=== PATIENT | female | born 1975 | race Two or more races ===

== ENCOUNTER 2016-08-15 17:11 | Emergency (ER) | payer SELFPAY ==
[~2016-08-15] VITALS: Ht 160 cm; Wt 78.9 kg
[~2016-08-15 17:11] MED LIST: DOXY-168 PO; IBUP-1222 PO; Methergine; OXYC-302 PO; methergine PO
[2016-08-15] MEDS ORDERED: MAALOX/HYOSCYAMINE/LIDOCAINE 45 ML BOTTLE ONE (17:53)
[2016-08-15] MEDS ORDERED: MORPHINE SULFATE 4 MG/ML, 1ML ONE (17:53)
[2016-08-15] MEDS ORDERED: ONDANSETRON 2MG/ML, 2ML ONE (17:54)
[2016-08-15] MEDS ORDERED: FAMOTIDINE 20 MG/2 ML ONE (17:54)
[2016-08-15] MEDS ORDERED: MAALOX/HYOSCYAMINE/LIDOCAINE 45 ML BOTTLE PO ONE (18:00)
[2016-08-15] MEDS ORDERED: FAMOTIDINE 20 MG/2 ML IVP ONE (18:00)
[2016-08-15] MEDS ORDERED: ONDANSETRON 2MG/ML, 2ML IVPush ONE (18:00)
[2016-08-15] MEDS ORDERED: MORPHINE SULFATE 4 MG/ML, 1ML IVPush PRN (18:00)
[2016-08-15 18:10] LABS: ASPARTATE AMINO TRANSFERASE 10 U/L (15-37); BLOOD UREA NITROGEN 9 mg/dL (7-18)
[2016-08-15] MEDS ORDERED: CEFOTETAN PMX 2GM/50ML 50 ML IV ONE (19:30)
[2016-08-15] MEDS ORDERED: CEFOTETAN PMX 1GM/50ML 50 ML ONE (19:35)
[2016-08-15 20:40] VITALS: BP 115/78
== END 2016-08-15 20:44 | disposition home or self-care (01) ==
LOC: ED 18:54
DX: K80.20 Calculus of gallbladder without cholecystitis without obstruction (principal); K80.50 Calculus of bile duct without cholangitis or cholecystitis without obstruction; I10 Essential (primary) hypertension
CPT/HCPCS: 36415; 76700; 80053; 83690; 85025; 86677; 93005; 96365; 96375; 99285; J2405; S0074; S0028

== ENCOUNTER 2016-11-28 22:15 | Emergency (ER) | payer OTHER ==
[~2016-11-28] VITALS: Ht 154.9 cm; Wt 78.9 kg
[2016-11-28] MEDS ORDERED: KETOROLAC 30 MG/1 ML ONE (22:41)
[2016-11-28] MEDS ORDERED: KETOROLAC 30 MG/1 ML IVPush ONE (23:00)
[2016-11-28] MEDS ORDERED: SODIUM CHLORIDE FLUSH 10ML SYR IVF ONE (23:00)
[2016-11-28 23:07] LABS: ASPARTATE AMINO TRANSFERASE 23 U/L (15-37); BLOOD UREA NITROGEN 10 mg/dL (7-18); HEMATOCRIT 31.6 % (34.6-47.8); HEMOGLOBIN 10.1 g/dL (11.7-16.4); WHITE BLOOD COUNT 8.4 x10^3/uL (3.4-10)
[2016-11-29 00:46] VITALS: BP 119/65
== END 2016-11-29 00:51 | disposition home or self-care (01) ==
LOC: ED 23:43
DX: D64.9 Anemia, unspecified (principal); N93.8 Other specified abnormal uterine and vaginal bleeding; N92.4 Excessive bleeding in the premenopausal period; N92.0 Excessive and frequent menstruation with regular cycle; N92.1 Excessive and frequent menstruation with irregular cycle; I10 Essential (primary) hypertension
CPT/HCPCS: 36415; 76830; 80053; 84703; 85025; 96374; 99285; J1885

== ENCOUNTER 2016-12-02 11:32 | Inpatient (IN) | payer MEDICAID, OTHER ==
[~2016-12-02] VITALS: Ht 165.1 cm; Wt 78.0 kg
[2016-12-02] VITALS (11 sets, daily range): BP systolic 104–137; BP diastolic 61–79
[~2016-12-02 11:32] MED LIST changes: -DOXY-168 PO; +DOXY100T10 PO
[2016-12-02] MEDS ORDERED: ACETAMINOPHEN 325 MG TABLET ONE (12:47)
[2016-12-02] MEDS ORDERED: ACETAMINOPHEN 325 MG TABLET PO ONE (13:00)
[2016-12-02 13:11] LABS: HEMATOCRIT 19.9 % (34.6-47.8)
[2016-12-02 13:12] LABS: HEMOGLOBIN 6.4 g/dL (11.7-16.4)
[2016-12-02] MEDS ORDERED: SODIUM CHLORIDE 0.9% 1,000ML IVBOLUS ONE (13:30)
[2016-12-02] MEDS ORDERED: SODIUM CHLORIDE FLUSH 10ML SYR IVF ONE (13:30)
[2016-12-02 13:31] LABS: ANISOCYTOSIS 1+; MICROCYTOSIS 1+; POLYCHROMASIA 1+
[2016-12-02 13:55] LABS: BLOOD UREA NITROGEN 6 mg/dL (7-18)
[2016-12-02] MEDS ORDERED: NORGESTIMATE-ETHINYL ESTRADIOL TABLET PO ONE (14:00)
[2016-12-02 16:04] LABS: IS PT STATUS REG ER OR PRE ER? NO
[2016-12-02] MEDS: ACETAMINOPHEN 325 MG TABLET PO PRN (17:09)
[2016-12-02 23:16] LABS: IS PT STATUS REG ER OR PRE ER? NO
[2016-12-03 00:48] VITALS: BP 100/68
[2016-12-03 04:02] LABS: HEMATOCRIT 24.9 % (34.6-47.8); HEMOGLOBIN 8.1 g/dL (11.7-16.4); WHITE BLOOD COUNT 6.7 x10^3/uL (3.4-10)
[2016-12-03 04:09] LABS: ASPARTATE AMINO TRANSFERASE 12 U/L (15-37); BLOOD UREA NITROGEN 8 mg/dL (7-18)
[2016-12-03 08:17] VITALS: BP 111/66
[2016-12-03] MEDS: ACETAMINOPHEN 325 MG TABLET PO PRN ×2 (12:15→22:35)
[2016-12-03 14:31] VITALS: BP 110/60
[2016-12-03] MEDS ORDERED: ONDANSETRON 2MG/ML, 2ML ONE (14:46)
[2016-12-03] MEDS ORDERED: ONDANSETRON 2MG/ML, 2ML IVPush PRN (15:00)
[2016-12-03 19:48] VITALS: BP 115/71
[2016-12-04 02:01] VITALS: BP 104/65
[2016-12-04 03:17] LABS: PATH.CAST-FLAG NOT PRESENT; SPERM-FLAG NOT PRESENT; SRC-FLAG NOT PRESENT; XTAL-FLAG NOT PRESENT; YLC-FLAG NOT PRESENT
[2016-12-04] MEDS ORDERED: NORGESTIMATE-ETHINYL ESTRADIOL TABLET PO SCH ×2 (07:00→09:00)
[2016-12-04 07:28] VITALS: BP 101/61
[2016-12-04] MEDS ORDERED: FERR325T5 PO (11:14)
[2016-12-04] MEDS: ACETAMINOPHEN 325 MG TABLET PO PRN (12:00)
[2016-12-06] MEDS ORDERED: NORGESTIMATE-ETHINYL ESTRADIOL TABLET PO SCH (09:00)
== END 2016-12-04 12:30 | disposition home or self-care (01) | DRG 760 ==
LOC: ED 13:28 → EDIP 13:29 → ED 13:46 → 3NE 14:49
PROVIDERS: ADMIT Family Medicine; ATTEND Family Medicine
PROC: 30233N1 Transfusion of Nonautologous Red Blood Cells into Peripheral Vein, Percutaneous Approach (ICD-10-PCS; principal; 2016-12-02)
DX: N93.8 Other specified abnormal uterine and vaginal bleeding (principal); E44.0 Moderate protein-calorie malnutrition; I10 Essential (primary) hypertension; D50.0 Iron deficiency anemia secondary to blood loss (chronic); N85.8 Other specified noninflammatory disorders of uterus
CPT/HCPCS: 36415; 80048; 80053; 81001; 82040; 83735; 84100; 84443; 84484; 84703; 85018; 85025; 86850; 86900; 86923; 87086; 93005; 96360; J2405; J7030; P9016

== ENCOUNTER 2016-12-15 10:57 | Emergency (ER) | payer OTHER ==
[~2016-12-15] VITALS: Ht 152.4 cm; Wt 78.6 kg
[~2016-12-15 10:57] MED LIST changes: +FERR325T5 PO
[2016-12-15] MEDS ORDERED: SODIUM CHLORIDE 0.9% 1,000 ML IV ONE (11:15)
[2016-12-15] MEDS ORDERED: MORPHINE SULFATE 4 MG/ML, 1ML IVPush PRN (11:30)
[2016-12-15] MEDS ORDERED: KETOROLAC 30 MG/1 ML IVPush ONE (11:30)
[2016-12-15] MEDS ORDERED: ONDANSETRON 2MG/ML, 2ML IVPush ONE (11:30)
[2016-12-15] MEDS ORDERED: KETOROLAC 30 MG/1 ML ONE (11:45)
[2016-12-15] MEDS ORDERED: ONDANSETRON 2MG/ML, 2ML ONE (11:45)
[2016-12-15] MEDS ORDERED: MORPHINE SULFATE 4 MG/ML, 1ML ONE (11:45)
[2016-12-15 11:51] LABS: HEMATOCRIT 25.7 % (34.6-47.8); HEMOGLOBIN 8.6 g/dL (11.7-16.4); WHITE BLOOD COUNT 5.6 x10^3/uL (3.4-10)
[2016-12-15 12:03] LABS: ASPARTATE AMINO TRANSFERASE 14 U/L (15-37); BLOOD UREA NITROGEN 11 mg/dL (7-18)
[2016-12-15 13:40] VITALS: BP 97/54
== END 2016-12-15 13:44 | disposition home or self-care (01) ==
LOC: ED 11:21
DX: N93.8 Other specified abnormal uterine and vaginal bleeding (principal); D64.9 Anemia, unspecified; I10 Essential (primary) hypertension
CPT/HCPCS: 36415; 76830; 80053; 81003; 84703; 85025; 96361; 96374; 96375; 99285; J1885; J2405; J7030

== ENCOUNTER 2016-12-24 15:21 | Emergency (ER) | payer OTHER ==
[~2016-12-24] VITALS: Ht 157.5 cm; Wt 79.0 kg
[2016-12-24] MEDS ORDERED: SODIUM CHLORIDE 0.9% 1,000ML IVBOLUS ONE (15:30)
[2016-12-24] MEDS ORDERED: ONDANSETRON 2MG/ML, 2ML IVPush ONE (15:30)
[2016-12-24] MEDS ORDERED: SODIUM CHLORIDE FLUSH 10ML SYR IVF ONE (15:30)
[2016-12-24] MEDS ORDERED: MORPHINE SULFATE 4 MG/ML, 1ML IVPush PRN (15:30)
[2016-12-24 15:50] LABS: HEMATOCRIT 27.7 % (34.6-47.8); HEMOGLOBIN 8.9 g/dL (11.7-16.4); WHITE BLOOD COUNT 6.1 x10^3/uL (3.4-10)
[2016-12-24 16:00] LABS: BLOOD UREA NITROGEN 10 mg/dL (7-18)
[2016-12-24] MEDS ORDERED: MORPHINE SULFATE 4 MG/ML, 1ML ONE (16:02)
[2016-12-24] MEDS ORDERED: ONDANSETRON 2MG/ML, 2ML ONE (16:02)
[2016-12-24 16:50] VITALS: BP 124/72
[2016-12-24] MEDS ORDERED: ACETAMINOPHEN 325 MG TABLET PO ONE (17:00)
[2016-12-24] MEDS ORDERED: ACETAMINOPHEN 325 MG TABLET ONE (17:06)
[2016-12-24 17:20] LABS: PATH.CAST-FLAG NOT PRESENT; SPERM-FLAG NOT PRESENT; SRC-FLAG NOT PRESENT; XTAL-FLAG NOT PRESENT; YLC-FLAG NOT PRESENT
== END 2016-12-24 17:48 | disposition home or self-care (01) ==
LOC: ED 17:34
DX: N93.8 Other specified abnormal uterine and vaginal bleeding (principal); D64.9 Anemia, unspecified; R55 Syncope and collapse; I10 Essential (primary) hypertension
CPT/HCPCS: 36415; 80048; 81001; 82040; 84703; 85025; 93005; 96361; 96374; 96375; 99285; J2405; J7030

== ENCOUNTER 2018-06-30 17:25 | Emergency (ER) | payer SELFPAY ==
[~2018-06-30] VITALS: Ht 160 cm; Wt 80.0 kg
--- NOTE | 2018-06-30 18:22 | NUR ---
ADVANCED MANAGER: AMBULATORY TO ROOM FROM LOBBY
[2018-06-30 18:32] LABS: BASOPHILS # (AUTO) 0.02 x10^3/uL (0-0.1); BASOPHILS % (AUTO) 0 % (0-1); EOSINOPHILS # (AUTO) 0.11 x10^3/uL (0-0.4); EOSINOPHILS % (AUTO) 2 % (1-7); LYMPHOCYTES # (AUTO) 1.61 x10^3/uL (1-3.4); LYMPHOCYTES % (AUTO) 22 % (22-44); MD NO; MEAN CORPUSCULAR HEMOGLOBIN 28.8 pg (27.0-34.8); MEAN CORPUSCULAR VOLUME 84.6 fL (80-100); MEAN PLATELET VOLUME 8.3 fL (7.4-10.4); MONOCYTES # (AUTO) 0.42 x10^3/uL (0.2-0.8); MONOCYTES % (AUTO) 6 % (2-9); NEUTROPHILS # (AUTO) 5.22 x10^3/uL (1.8-6.8); NEUTROPHILS % (AUTO) 71 % (42-75); PLATELET COUNT 367 x10^3/uL (130-400); RED BLOOD COUNT 3.47 x10^6/uL (3.82-5.3); RED CELL DISTRIBUTION WIDTH 14.4 % (9.6-15.2)
[2018-06-30 18:33] LABS: ALBUMIN 3.8 g/dL (3.4-5.0); ANION GAP 4 mmol/L (5-15); CALCIUM 8.5 mg/dL (8.5-10.1); CHLORIDE 108 mmol/L (98-107)
--- NOTE | 2018-06-30 18:35 | NUR ---
jessica RN: Pt reports heavy vaginal bleeding w/ clots x 2 weeks & associated lethargy/weakness. Pt denies . 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
[2018-06-30 18:39] LABS: ALANINE AMINOTRANSFERASE 44 U/L (12-78); ALKALINE PHOSPHATASE 105 U/L (45-117); BILIRUBIN,TOTAL 0.3 mg/dL (0.2-1.0); CREATININE 0.59 mg/dL (0.55-1.02); TOTAL PROTEIN 7.6 g/dL (6.4-8.2)
--- NOTE | 2018-06-30 19:32 | NUR ---
PT UP TO BATHROOM FOR UA.
[2018-06-30 20:04] VITALS: BP 123/51
== END 2018-06-30 20:06 | disposition home or self-care (01) ==
LOC: ED 20:00
DX: N93.8 Other specified abnormal uterine and vaginal bleeding (principal); D25.1 Intramural leiomyoma of uterus; D62 Acute posthemorrhagic anemia; I10 Essential (primary) hypertension
CPT/HCPCS: 36415; 76830; 80053; 84703; 85025; 99284

== ENCOUNTER 2019-07-20 12:04 | Inpatient (IN) | payer OTHER ==
[~2019-07-20] VITALS: Ht 160 cm; Wt 77.0 kg
[~2019-07-20 12:04] MED LIST changes: -DOXY100T10 PO; +DOXY100T23 PO
--- NOTE | 2019-07-20 13:14 | NUR ---
PT WITH EPIGASTIC PAIN THAT RADIATES INTO LUQ. WORSE AFTER EATING FOOD. MILD AMOUNT OF DISTRESS NOTED. BREATHING REGULAR AND UNLABORED. Addendum: 07/20/19 at 1729 by PARISH correction RUQ
[2019-07-20] MEDS ORDERED: SODIUM CHLORIDE FLUSH 10ML SYR IVF ONE (13:30)
[2019-07-20] MEDS ORDERED: FAMOTIDINE 20 MG/2 ML IV ONE (13:30)
[2019-07-20] MEDS ORDERED: ONDANSETRON 2MG/ML, 2ML IVPush ONE (13:30)
[2019-07-20] MEDS ORDERED: MORPHINE SULFATE 4 MG/ML, 1ML ONE ×3 (13:31→17:20)
[2019-07-20] MEDS ORDERED: FAMOTIDINE 20 MG/2 ML ONE (13:31)
[2019-07-20] MEDS ORDERED: ONDANSETRON 2MG/ML, 2ML ONE ×4 (13:31→20:08)
[2019-07-20] MEDS: MORPHINE SULFATE 4 MG/ML, 1ML IVPush PRN ×2 (13:37→14:55)
--- NOTE | 2019-07-20 13:37 | NUR ---
IV STARTED AND LABS DRAWN BY EMT. PT MEDICATED PER JUN. RIGHTS VERIFIED PRIOR. 3P'S ADDRESSED.
[2019-07-20 14:08] LABS: BASOPHILS # (AUTO) 0.01 x10^3/uL (0-0.1); BASOPHILS % (AUTO) 0 % (0-1); EOSINOPHILS % (AUTO) 0 % (1-7); LYMPHOCYTES # (AUTO) 0.93 x10^3/uL (1-3.4); LYMPHOCYTES % (AUTO) 15 % (22-44); MD NO; MEAN CORPUSCULAR HEMOGLOBIN 27.9 pg (27.0-34.8); MEAN CORPUSCULAR HGB CONC 31.8 g/dL (32.4-35.8); MEAN CORPUSCULAR VOLUME 87.8 fL (80-100); MEAN PLATELET VOLUME 8.7 fL (7.4-10.4); MONOCYTES # (AUTO) 0.32 x10^3/uL (0.2-0.8); MONOCYTES % (AUTO) 5 % (2-9); NEUTROPHILS # (AUTO) 5.12 x10^3/uL (1.8-6.8); NEUTROPHILS % (AUTO) 80 % (42-75); PLATELET COUNT 395 x10^3/uL (130-400); RED BLOOD COUNT 3.96 x10^6/uL (3.82-5.3); RED CELL DISTRIBUTION WIDTH 16.4 % (9.6-15.2)
--- NOTE | 2019-07-20 14:17 | NUR ---
Attempted to get patient up to give urine sample. Became dizzy while trying to get up.
[2019-07-20 14:18] LABS: ANION GAP 8 mmol/L (5-15); CALCIUM 8.7 mg/dL (8.5-10.1); CHLORIDE 104 mmol/L (98-107)
[2019-07-20 14:27] LABS: ALANINE AMINOTRANSFERASE 24 U/L (12-78); ALKALINE PHOSPHATASE 103 U/L (45-117); BILIRUBIN,TOTAL 0.6 mg/dL (0.2-1.0); CREATININE 0.61 mg/dL (0.55-1.02); TOTAL PROTEIN 8.2 g/dL (6.4-8.2)
--- NOTE | 2019-07-20 14:44 | NUR ---
UP TO RESTROOM TO OBTAIN URINE SAMPLE.
--- NOTE | 2019-07-20 14:57 | NUR ---
URINE SAMPLE COLLECTED. PT MEDICATED PER Jun.14 RIGHTS VERIFIED PRIOR.
[2019-07-20 15:30] LABS: CULTURE INDICATED? YES; MICROSCOPIC INDICATED
--- NOTE | 2019-07-20 15:52 | NUR ---
PATIENT CONTINUES TO HAVE SOME PAIN. THOUGH VISUALLY SHE LOOKS LIKE SHE IS IN A LOT LESS DISCOMFORT THAN BEFORE.
[2019-07-20] MEDS ORDERED: SODIUM CHLORIDE 0.9% 1,000 ML IV ONE (15:59)
[2019-07-20] MEDS ORDERED: ONDANSETRON 2MG/ML, 2ML IVPush PRN (16:00)
[2019-07-20] MEDS ORDERED: MORPHINE SULFATE 4 MG/ML, 1ML IVPush PRN (16:00)
[2019-07-20] MEDS ORDERED: CEFOTETAN PMX 1GM/50ML 50 ML IV ONE (16:00)
[2019-07-20] MEDS ORDERED: SODIUM CHLORIDE FLUSH 10ML SYR IVF PRN (16:00)
--- NOTE | 2019-07-20 17:27 | NUR ---
PT medicated for continued pain. 3 p's addressed. POC updated with patient.
--- NOTE | 2019-07-20 17:40 | NUR ---
REPORT TO GEOVANNI PEREZ.
[2019-07-20 18:00] VITALS: BP 145/78
--- NOTE | 2019-07-20 18:40 | NUR ---
GEOVANNI PEREZ TO CONFIRM IF ABX ORDERED WAS SUPPOSED TO BE GIVEN NOW. CONFIRMED WITH ERMD OVERSEEING PATIENT THAT ABX WAS ORDERED TO BE GIVEN RIGHT BEFORE SURGERY.
[2019-07-20] MEDS ORDERED: BUPIVACAINE/PF-EPI 0.5% 1:200K ONE (18:46)
[2019-07-20] MEDS ORDERED: hydrALAzine 20 MG/ML, 1ML IV PRN (20:00)
[2019-07-20] MEDS ORDERED: MEPERIDINE/PF 25MG/ML,1ML IVPush PRN (20:00)
[2019-07-20] MEDS ORDERED: OXYcodone 5 MG/5 ML ORAL.SOL UDC PO PRN (20:00)
[2019-07-20] MEDS ORDERED: ONDANSETRON 2MG/ML, 2ML IV PRN (20:00)
[2019-07-20] MEDS ORDERED: LABETALOL 5MG/ML, 20ML IV PRN (20:00)
[2019-07-20] MEDS ORDERED: ACETAMINOPHEN 325 MG TABLET PO PRN ×2 (20:00→23:30)
[2019-07-20] MEDS ORDERED: HYDROmorphone 2 MG/ML, 1ML IVPush PRN (20:00)
[2019-07-20] MEDS ORDERED: LORazepam 2 MG/ML, 1ML IVPush PRN (20:00)
[2019-07-20] MEDS ORDERED: MIDAZOLAM 1 MG/ML, 2ML ONE (20:03)
[2019-07-20] MEDS ORDERED: FENTANYL PF 250 MCG/5ML ONE (20:04)
[2019-07-20] MEDS ORDERED: PROPOFOL 10 MG/ML, 20ML ONE (20:08)
[2019-07-20] MEDS ORDERED: DEXAMETHASONE 4 MG/ML, 1ML ONE (20:08)
[2019-07-20] MEDS ORDERED: CEFAZOLIN 1,000 MG ONE (20:08)
[2019-07-20] MEDS ORDERED: ROCURONIUM 10 MG/ML,10ML ONE (20:08)
[2019-07-20] MEDS ORDERED: SUCCINYLCHOLINE 20 MG/ML, 10ML ONE (20:08)
[2019-07-20] MEDS ORDERED: THROMBIN 5,000 UNIT VIAL TP ONE (20:34)
[2019-07-20] MEDS ORDERED: HYDROmorphone 1 MG/ML, 1ML INJ ONE (21:17)
[2019-07-20] MEDS ORDERED: FENTANYL PF 100 MCG/2ML ONE (21:17)
[2019-07-20] MEDS ORDERED: OXYcodone 5 MG/5 ML ORAL.SOL UDC ONE (21:17)
[2019-07-20] MEDS: FENTANYL PF 100 MCG/2ML IV PRN ×2 (21:18→21:28)
[2019-07-20 22:49] VITALS: BP 146/65
[2019-07-20] MEDS ORDERED: DIPHENHYDRAMINE 25 MG CAPSULE PO PRN (23:30)
[2019-07-21] MEDS: ONDANSETRON 2MG/ML, 2ML IV PRN ×2 (00:08→08:38)
[2019-07-21 01:01] VITALS: BP 127/78
[2019-07-21] MEDS: OXYcodone/APAP 5/325MG TABLET PO PRN ×2 (04:40→08:31)
[2019-07-21 05:16] VITALS: BP 148/76
[2019-07-21 06:47] VITALS: BP 129/80
[2019-07-21] MEDS: IBUPROFEN 600 MG TABLET PO PRN ×2 (08:31→15:43)
[2019-07-21] MEDS ORDERED: SODIUM CHLORIDE FLUSH 3ML SYRINGE IVF SCH (09:00)
[2019-07-21] MEDS ORDERED: POLY17PO5 PO (11:27)
[2019-07-21] MEDS ORDERED: OXYC-302 PO (11:27)
[2019-07-21 12:33] VITALS: BP 103/61
== END 2019-07-21 15:47 | disposition home or self-care (01) | DRG 419 ==
LOC: ED 13:20 → EDIP 15:59 → 4NE 18:04
PROVIDERS: ADMIT Colon & Rectal Surgery; ATTEND Colon & Rectal Surgery
PROC: 0FT44ZZ Resection of Gallbladder, Percutaneous Endoscopic Approach (ICD-10-PCS; principal; 2019-07-20 20:00)
DX: K80.00 Calculus of gallbladder with acute cholecystitis without obstruction (principal); I10 Essential (primary) hypertension
CPT/HCPCS: 36415; 96374; 96375; 96376; 99285; J3490; 76700; 80053; 81001; 83690; 84703; 85025; 87086; 88304; G0378; J0690; J1100; J1170; J2250; J2405; J2704; J3010; J0330; J2270; J7030

== ENCOUNTER 2019-08-06 05:58 | Day surgery (SDC) | payer MEDICAID ==
[~2019-08-06] VITALS: Ht 160 cm; Wt 84.1 kg
[~2019-08-06 05:58] MED LIST changes: +POLY17PO5 PO
[2019-08-06] MEDS ORDERED: OMNIPAQUE 350 MG/ML, 100ML BOTTLE ONE (06:15)
--- NOTE | 2019-08-06 06:20 | NUR ---
THIS IS A 43 YO FEMALE COMING IN FOR ACUTE ONSET EPIGASTRIC ABD PAIN STARTING AROUND 11PM, PATIENT RECENTLY HAD LAPRASCOPIC CHOLECYSTECTOMY ON 07/20 WITHOUT COMPLICATIONS. PATIENT STATES "I WAS CARRYING SOMETHING HEAVY YESTERDAY, AND I DON'T KNOW IF THAT IS WHAT CAUSED THIS". EPIGASTRICREGION TENDER TO PALPATION, RLQ PAIN WITH TENDERNESS TO PALPATION NOTED WELL. +N/V, NO DIARRHEA, NO FEVERS AT HOME. PATIENT TOOK OXYCODONE AROUND 4AM FOR PAIN WITH NO RELIEF. PATIENT ALSO STATES "I HAVE BEEN BLEEDING VAGINALLY FOR THE PAST TWO WEEKS EVERY DAY, I HAVE A TUMOR THERE". ALL MONITORING IN PLACE, VSS, NSR ON SALESPERSON WOMEN'S DRESSES, PAIN 01/19 AT THIS TIME, WITH LABORED GRUNTING BREATHING ASSOCIATED WITH PAIN. CALL LIGHT IN REACH
[2019-08-06] MEDS ORDERED: ONDANSETRON 2MG/ML, 2ML ONE ×2 (06:21→09:33)
[2019-08-06] MEDS ORDERED: MORPHINE SULFATE 4 MG/ML, 1ML ONE (06:22)
[2019-08-06 06:28] LABS: BASOPHILS % (AUTO) 0 % (0-1); EOSINOPHILS # (AUTO) 0.14 x10^3/uL (0-0.4); EOSINOPHILS % (AUTO) 1 % (1-7); LYMPHOCYTES # (AUTO) 0.87 x10^3/uL (1-3.4); LYMPHOCYTES % (AUTO) 8 % (22-44); MD NO; MEAN CORPUSCULAR HEMOGLOBIN 27.1 pg (27.0-34.8); MEAN CORPUSCULAR HGB CONC 32.1 g/dL (32.4-35.8); MEAN CORPUSCULAR VOLUME 84.5 fL (80-100); MEAN PLATELET VOLUME 7.6 fL (7.4-10.4); MONOCYTES # (AUTO) 0.28 x10^3/uL (0.2-0.8); MONOCYTES % (AUTO) 3 % (2-9); NEUTROPHILS # (AUTO) 9.31 x10^3/uL (1.8-6.8); NEUTROPHILS % (AUTO) 88 % (42-75); PLATELET COUNT 478 x10^3/uL (130-400); RED BLOOD COUNT 3.15 x10^6/uL (3.82-5.3); RED CELL DISTRIBUTION WIDTH 15.9 % (9.6-15.2)
[2019-08-06] MEDS ORDERED: SODIUM CHLORIDE 0.9% 1,000ML IVBOLUS ONE (06:30)
[2019-08-06] MEDS ORDERED: MORPHINE SULFATE 4 MG/ML, 1ML IVPush PRN ×2 (06:30→12:30)
[2019-08-06] MEDS ORDERED: ONDANSETRON 2MG/ML, 2ML IVPush ONE (06:30)
[2019-08-06] MEDS ORDERED: SODIUM CHLORIDE FLUSH 10ML SYR IVF ONE (06:30)
--- NOTE | 2019-08-06 06:34 | NUR ---
PATIENT TO CT AT THIS TIME
--- NOTE | 2019-08-06 06:34 | NUR ---
PIV PLACED, PATIENT MEDICATED PER EMAR, TOLERATED WELL. IVF STARTED.
[2019-08-06 06:37] LABS: INTERNATIONAL NORMALIZED RATIO 0.93 (0.93-1.1); PROTHROMBIN TIME 9.9 Seconds (9.6-11.5)
[2019-08-06 06:39] LABS: ALANINE AMINOTRANSFERASE 21 U/L (12-78); ALBUMIN 3.7 g/dL (3.4-5.0); ANION GAP 8 mmol/L (5-15); CHLORIDE 106 mmol/L (98-107); CREATININE 0.75 mg/dL (0.55-1.02)
[2019-08-06 06:44] LABS: ALKALINE PHOSPHATASE 100 U/L (45-117); BILIRUBIN,TOTAL 0.2 mg/dL (0.2-1.0); TOTAL PROTEIN 7.9 g/dL (6.4-8.2)
--- NOTE | 2019-08-06 06:47 | NUR ---
PATIENT BACK FROM CT AT THIS TIME
--- NOTE | 2019-08-06 06:48 | NUR ---
REPORT GIVEN GEOVANNI SHAW. PLAN OF CARE DISCUSSED
--- NOTE | 2019-08-06 06:50 | NUR ---
RECEIVED REPORT FROM MANOLO RN, PLAN OF CARE DISCUSSED
--- NOTE | 2019-08-06 07:12 | NUR ---
PT SLEEPING RESP EVEN AND UNLABORED
[2019-08-06] MEDS ORDERED: HYDROmorphone 1 MG/ML, 1ML INJ ONE ×2 (07:18→11:42)
--- NOTE | 2019-08-06 07:19 | NUR ---
dr gallo spoke with dr taylor
--- NOTE | 2019-08-06 07:29 | NUR ---
PT HAS APPENDICITIS, PT MADE AWARE BY DR. ISABEL. PT STATES PAIN IS 10/10 MEDICATED WITH DILAUDID PER ORDERS.
[2019-08-06] MEDS ORDERED: HYDROmorphone 2 MG/ML, 1ML IVPush PRN ×2 (07:30→10:00)
[2019-08-06] MEDS ORDERED: CEFOTETAN PMX 1GM/50ML 50 ML ONE (07:30)
[2019-08-06] MEDS ORDERED: CEFOTETAN PMX 1GM/50ML 50 ML IV ONE (07:30)
--- NOTE | 2019-08-06 07:32 | NUR ---
dr gallo spoke with dr godwin
--- NOTE | 2019-08-06 07:38 | NUR ---
PER DR. ISABEL NO BLOOD CULTURES PRIOR TO ANTIBIOTICS.
--- NOTE | 2019-08-06 08:24 | NUR ---
REPORT TO OLI GALARZA, PLAN OF CARE DISCUSSED
--- NOTE | 2019-08-06 08:37 | NUR ---
PT TO SURGERY VIA ROSY
[2019-08-06] MEDS ORDERED: BUPIVACAINE/PF-EPI 0.5% 1:200K ONE (09:03)
[2019-08-06] MEDS ORDERED: PROPOFOL 50 ML ONE (09:07)
[2019-08-06] MEDS ORDERED: FENTANYL PF 250 MCG/5ML ONE (09:07)
[2019-08-06] MEDS ORDERED: SUCCINYLCHOLINE 20 MG/ML, 10ML ONE (09:33)
[2019-08-06] MEDS ORDERED: PROPOFOL 10 MG/ML, 20ML ONE (09:33)
[2019-08-06] MEDS ORDERED: ROCURONIUM 10MG/ML,5ML ONE (09:33)
[2019-08-06] MEDS ORDERED: EPHEDRINE 50 MG/ML, 1ML IM PRN (10:00)
[2019-08-06] MEDS ORDERED: MEPERIDINE/PF 25MG/ML,1ML IVPush PRN (10:00)
[2019-08-06] MEDS ORDERED: ONDANSETRON 2MG/ML, 2ML IV PRN (10:00)
[2019-08-06] MEDS ORDERED: PROMETHAZINE 25 MG/ML, 1ML IV PRN (10:00)
[2019-08-06] MEDS ORDERED: OXYcodone 5 MG/5 ML ORAL.SOL UDC PO PRN (10:00)
[2019-08-06] MEDS ORDERED: METOPROLOL 1 MG/ML, 5ML IV PRN (10:00)
[2019-08-06] MEDS ORDERED: MIDAZOLAM 1 MG/ML, 2ML IV PRN (10:00)
[2019-08-06] MEDS ORDERED: EPHEDRINE 50 MG/ML, 1ML IVPush PRN (10:00)
[2019-08-06] MEDS ORDERED: ONDANSETRON ODT 8 MG PO PRN (10:00)
[2019-08-06] MEDS ORDERED: DIPHENHYDRAMINE 50 MG/ML, 1ML IVPush PRN (10:00)
[2019-08-06] MEDS ORDERED: DIAZEPAM 5 MG/ML, 2ML IVPush PRN (10:00)
[2019-08-06] MEDS ORDERED: FENTANYL PF 100 MCG/2ML IV PRN (10:00)
[2019-08-06] MEDS ORDERED: OXYcodone 5 MG/5 ML ORAL.SOL UDC ONE (10:59)
[2019-08-06] MEDS ORDERED: FENTANYL PF 100 MCG/2ML ONE (11:42)
[2019-08-06] MEDS ORDERED: HYDROcodone/APAP 5/325 TABLET PO PRN (12:30)
[2019-08-06] MEDS ORDERED: ONDANSETRON 2MG/ML, 2ML IVPush PRN (12:30)
[2019-08-06] MEDS ORDERED: LACTATED RINGERS 1,000 ML IV SCH (12:30)
[2019-08-06] MEDS ORDERED: HYDR-3240 PO (12:45)
[2019-08-06 13:54] VITALS: BP 127/77
[2019-08-06 14:56] VITALS: BP 117/72
[2019-08-06] MEDS ORDERED: CEPH-368 PO (15:58)
== END 2019-08-06 17:17 | disposition home or self-care (01) ==
LOC: ED 07:00 → SDC 07:30 → EDIP 08:38 → UNDOADMIN 08:38 → EDIP 12:08 → 4NE 12:08 → EDSTATUS 12:52 → UNDODISIN 17:17 → SDC 17:17
PROVIDERS: ATTEND Emergency Medicine
DX: K35.80 Unspecified acute appendicitis (principal); D25.0 Submucous leiomyoma of uterus; I10 Essential (primary) hypertension; Z79.1 Long term (current) use of non-steroidal anti-inflammatories (NSAID); Z79.01 Long term (current) use of anticoagulants; Z79.891 Long term (current) use of opiate analgesic; Z90.49 Acquired absence of other specified parts of digestive tract; Z82.49 Family history of ischemic heart disease and other diseases of the circulatory system
CPT/HCPCS: 36415; 44970; 74177; 80053; 83690; 84703; 85025; 85610; 85730; 88304; 96361; 96374; 96375; 99285; J0330; J1170; J2270; J2405; J2704; J3010; J3490; J7030; Q9967; G0378

== ENCOUNTER 2019-08-08 16:28 | Inpatient (IN) | payer MEDICAID, OTHER ==
[~2019-08-08] VITALS: Ht 160 cm; Wt 76.0 kg
[~2019-08-08 16:28] MED LIST changes: +CEPH-368 PO; +HYDR-3240 PO
[2019-08-08] MEDS ORDERED: SODIUM CHLORIDE 0.9% 1,000ML IVBOLUS ONE (17:00)
[2019-08-08] MEDS ORDERED: MORPHINE SULFATE 4 MG/ML, 1ML IVPush ONE (17:00)
[2019-08-08] MEDS ORDERED: ONDANSETRON 2MG/ML, 2ML IVPush ONE (17:00)
[2019-08-08] MEDS ORDERED: ONDANSETRON 2MG/ML, 2ML ONE (17:27)
[2019-08-08] MEDS ORDERED: MORPHINE SULFATE 4 MG/ML, 1ML ONE (17:27)
[2019-08-08 17:34] LABS: BASOPHILS % (AUTO) 0 % (0-1); EOSINOPHILS # (AUTO) 0.03 x10^3/uL (0-0.4); EOSINOPHILS % (AUTO) 0 % (1-7); LYMPHOCYTES # (AUTO) 1.02 x10^3/uL (1-3.4); LYMPHOCYTES % (AUTO) 10 % (22-44); MD NO; MEAN CORPUSCULAR HEMOGLOBIN 27.1 pg (27.0-34.8); MEAN CORPUSCULAR HGB CONC 32.2 g/dL (32.4-35.8); MEAN CORPUSCULAR VOLUME 84.3 fL (80-100); MEAN PLATELET VOLUME 8.1 fL (7.4-10.4); MONOCYTES # (AUTO) 0.39 x10^3/uL (0.2-0.8); MONOCYTES % (AUTO) 4 % (2-9); NEUTROPHILS # (AUTO) 8.97 x10^3/uL (1.8-6.8); NEUTROPHILS % (AUTO) 86 % (42-75); PLATELET COUNT 515 x10^3/uL (130-400); RED BLOOD COUNT 2.94 x10^6/uL (3.82-5.3); RED CELL DISTRIBUTION WIDTH 15.9 % (9.6-15.2)
[2019-08-08 17:39] LABS: ALANINE AMINOTRANSFERASE 30 U/L (12-78); ANION GAP 7 mmol/L (5-15); CALCIUM 8.9 mg/dL (8.5-10.1); CHLORIDE 101 mmol/L (98-107); CREATININE 0.62 mg/dL (0.55-1.02)
[2019-08-08 17:42] LABS: ALKALINE PHOSPHATASE 119 U/L (45-117); BILIRUBIN,TOTAL 0.6 mg/dL (0.2-1.0)
--- NOTE | 2019-08-08 17:47 | NUR ---
PT LAYING IN BED, MEDICATED TO JUN. STRAIGHT CATH DONE. NO SIGNS OF DISTRESS.
[2019-08-08 17:54] LABS: CULTURE INDICATED? YES; MICROSCOPIC INDICATED
--- NOTE | 2019-08-08 17:58 | NUR ---
PT TO IMAGING.
--- NOTE | 2019-08-08 18:27 | NUR ---
PT BACK FROM IMAGING, DENIES RELIEF FROM PAIN MEDICATION.
[2019-08-08] MEDS ORDERED: OXYCODONE PO (18:29)
[2019-08-08] MEDS ORDERED: OMNIPAQUE 350 MG/ML, 100ML BOTTLE ONE (18:30)
--- NOTE | 2019-08-08 18:58 | NUR ---
REPORT GIVEN TO GEOVANNI WRIGHT. PT UP TO BEDSIDE COMMODE.
--- NOTE | 2019-08-08 19:06 | NUR ---
REPORT FROM GEOVANNI CAMPBELL. PT ON BEDSIDE COMMODE, ASSISTED TO BED. PT CONTINUES TO REPORT PAIN, 01/19 AND DENIES NAUSEA. BP/SPO2/ECG MONITORING IN PLACE. SINUS TACH ON MONITOR. Addendum: 08/08/19 at 1929 by LWEGENER ADDITIONAL PAIN MEDICATIONS REQUESTED FROM ERP. AWAITING ORDERS.
--- NOTE | 2019-08-08 19:20 | NUR ---
PT TALKING ON PHONE, DISTRACTABLE FROM PAIN
--- NOTE | 2019-08-08 20:00 | NUR ---
RN AT BEDSIDE FOR PELVIC. COLLECTED SWABS WALKED TO LAB
[2019-08-08] MEDS ORDERED: CEFOTETAN PMX 2GM/50ML 50 ML IV ONE (20:30)
[2019-08-08] MEDS ORDERED: DOXYCYCLINE 100MG TABLET PO ONE (20:30)
[2019-08-08] MEDS ORDERED: HYDROmorphone 1 MG/ML, 1ML INJ IV ONE (20:30)
[2019-08-08 20:32] LABS: CLUE CELLS NONE SEEN (NONE SEEN); WET PREP WBCS MANY (FEW)
--- NOTE | 2019-08-08 20:32 | NUR ---
DELAY IN ABX ADMIN, AWAITING BC ORDER/DRAW
[2019-08-08] MEDS ORDERED: HYDROmorphone 2 MG/ML, 1ML ONE (20:42)
--- NOTE | 2019-08-08 20:52 | NUR ---
PT ASSISTED TO BEDSIDE COMMODE AND BACK TO BED. PT MEDICATD PER EMAR FOR PAIN, 01/19.
[2019-08-08] MEDS ORDERED: DOXYCYCLINE 100MG TABLET ONE (21:00)
[2019-08-08] MEDS ORDERED: SODIUM CHLORIDE 0.9% 1,000 ML IV ONE (21:03)
--- NOTE | 2019-08-08 21:25 | NUR ---
ABX INITIATED PER ERP ORDER. BC X2 DRAWN PRIOR TO ADMIN
[2019-08-08] MEDS ORDERED: ONDANSETRON 2MG/ML, 2ML IVPush PRN (21:30)
[2019-08-08] MEDS ORDERED: HYDROmorphone 1 MG/ML, 1ML INJ IVPush PRN (21:30)
[2019-08-08] MEDS ORDERED: SODIUM CHLORIDE FLUSH 10ML SYR IVF PRN (21:30)
--- NOTE | 2019-08-08 21:42 | NUR ---
NO S/S OF ABX RXN NOTED. HOSPITALIST AT BEDSIDE.
--- NOTE | 2019-08-08 22:02 | NUR ---
RN AT BEDSIDE FOR PELVIC US. PT TOLERATED WELL. POSITIONED FOR COMFORT. AWAITING COURIER DELIVERY DRIVER CONSULT
[2019-08-08] MEDS: LACTATED RINGERS 1,000 ML IV SCH (22:30)
[2019-08-08] MEDS ORDERED: ACETAMINOPHEN 325 MG TABLET PO PRN (22:30)
[2019-08-08] MEDS ORDERED: morphine SULFATE 10 MG/ML, 1ML IVPush PRN (22:30)
[2019-08-08] MEDS ORDERED: POTASSIUM CHLORIDE 40 MEQ in SODIUM CHLORIDE 0.9% 500 ML IV ONE (22:30)
[2019-08-08] MEDS ORDERED: PROMETHAZINE 25 MG/ML, 1ML IM PRN (22:30)
[2019-08-08] MEDS ORDERED: hydrALAzine 20 MG/ML, 1ML IVPush PRN (22:30)
--- NOTE | 2019-08-08 22:39 | NUR ---
PT RESTING IN [place] GALLEGOS NOTED. NO S/S OF ABX RXN NOTED. IVF CONTINUES TO INFUSE. PT ON CELL PHONE, AWAITING ADMIT
--- NOTE | 2019-08-08 23:01 | NUR ---
REPORT TO GEOVANNI NAVAS. PT PREPARED FOR TRANSPORT
[2019-08-09] VITALS (7 sets, daily range): BP systolic 100–131; BP diastolic 58–81
[2019-08-09] MEDS: DOXYCYCLINE 100 MG in DEXTROSE 5% 250 ML IV SCH ×3 (00:25→22:06)
[2019-08-09] MEDS: TRAZODONE 50MG TABLET PO PRN ×2 (00:55→23:32)
[2019-08-09] MEDS: HYDROcodone/APAP 5/325 TABLET PO PRN ×4 (00:56→22:11)
[2019-08-09] MEDS: KETOROLAC 30 MG/1 ML IV PRN (00:56)
[2019-08-09 05:01] LABS: ANION GAP 5 mmol/L (5-15); CALCIUM 8.2 mg/dL (8.5-10.1); CHLORIDE 106 mmol/L (98-107); CREATININE 0.63 mg/dL (0.55-1.02)
[2019-08-09 05:06] LABS: MEAN CORPUSCULAR HEMOGLOBIN 26.8 pg (27.0-34.8); MEAN CORPUSCULAR HGB CONC 31.7 g/dL (32.4-35.8); MEAN CORPUSCULAR VOLUME 84.5 fL (80-100); MEAN PLATELET VOLUME 7.9 fL (7.4-10.4); PLATELET COUNT 425 x10^3/uL (130-400); RED BLOOD COUNT 2.36 x10^6/uL (3.82-5.3); RED CELL DISTRIBUTION WIDTH 16.3 % (9.6-15.2)
[2019-08-09 05:44] LABS: BASOPHILS # (AUTO) 0.01 x10^3/uL (0-0.1); BASOPHILS % (AUTO) 0 % (0-1); EOSINOPHILS % (AUTO) 0 % (1-7); LYMPHOCYTES # (AUTO) 0.73 x10^3/uL (1-3.4); LYMPHOCYTES % (AUTO) 10 % (22-44); MD SCAN; MONOCYTES # (AUTO) 0.45 x10^3/uL (0.2-0.8); MONOCYTES % (AUTO) 6 % (2-9); NEUTROPHILS # (AUTO) 6.14 x10^3/uL (1.8-6.8); NEUTROPHILS % (AUTO) 84 % (42-75)
[2019-08-09] MEDS: LACTATED RINGERS 1,000 ML IV SCH ×3 (06:23→20:50)
[2019-08-09 09:00] LABS: CLOSTRIDIUM DIFFICILE ANTIGEN NEGATIVE; CLOSTRIDIUM DIFFICILE TOXIN NEGATIVE (Negative)
[2019-08-09] MEDS ORDERED: metroNIDAZOLE 500 MG TABLET PO SCH (09:00)
[2019-08-09] MEDS: CEFOTETAN PMX 2GM/50ML 50 ML IV SCH ×2 (09:00→20:45)
[2019-08-09] MEDS: metroNIDAZOLE 500 MG TABLET PO SCH (20:44)
[2019-08-10 01:01] VITALS: BP 92/54
[2019-08-10] MEDS: HYDROcodone/APAP 5/325 TABLET PO PRN ×3 (05:04→20:27)
[2019-08-10 06:08] LABS: ANION GAP 7 mmol/L (5-15); CALCIUM 8.2 mg/dL (8.5-10.1); CHLORIDE 110 mmol/L (98-107); CREATININE 0.54 mg/dL (0.55-1.02)
[2019-08-10 06:11] LABS: BASOPHILS # (AUTO) 0.01 x10^3/uL (0-0.1); BASOPHILS % (AUTO) 0 % (0-1); EOSINOPHILS % (AUTO) 0 % (1-7); LYMPHOCYTES # (AUTO) 0.77 x10^3/uL (1-3.4); LYMPHOCYTES % (AUTO) 16 % (22-44); MD NO; MEAN CORPUSCULAR HEMOGLOBIN 27.9 pg (27.0-34.8); MEAN CORPUSCULAR HGB CONC 32.4 g/dL (32.4-35.8); MEAN CORPUSCULAR VOLUME 86.2 fL (80-100); MEAN PLATELET VOLUME 7.5 fL (7.4-10.4); MONOCYTES % (AUTO) 6 % (2-9); NEUTROPHILS # (AUTO) 3.79 x10^3/uL (1.8-6.8); NEUTROPHILS % (AUTO) 78 % (42-75); PLATELET COUNT 464 x10^3/uL (130-400); RED BLOOD COUNT 2.73 x10^6/uL (3.82-5.3); RED CELL DISTRIBUTION WIDTH 16.3 % (9.6-15.2)
[2019-08-10 07:19] VITALS: BP 131/78
[2019-08-10] MEDS: metroNIDAZOLE 500 MG TABLET PO SCH ×2 (09:32→20:30)
[2019-08-10] MEDS: DOXYCYCLINE 100 MG in DEXTROSE 5% 250 ML IV SCH ×2 (09:40→22:28)
[2019-08-10] MEDS: CEFOTETAN PMX 2GM/50ML 50 ML IV SCH ×2 (09:40→20:31)
[2019-08-10] MEDS ORDERED: POTASSIUM CHLORIDE 10% 40 MEQ/30 ML UDC PO ONE (12:00)
[2019-08-10] MEDS ORDERED: POTASSIUM CHLORIDE 20 MEQ PACKET ONE (12:02)
[2019-08-10 13:07] VITALS: BP 130/81
[2019-08-10] MEDS: LACTATED RINGERS 1,000 ML IV SCH (14:30)
[2019-08-10] MEDS: ONDANSETRON 2MG/ML, 2ML IVPush PRN (16:41)
[2019-08-10 18:51] VITALS: BP 143/89
[2019-08-10] MEDS: TRAZODONE 50MG TABLET PO PRN (22:40)
[2019-08-11 00:27] VITALS: BP 108/68
[2019-08-11] MEDS: LACTATED RINGERS 1,000 ML IV SCH ×2 (00:30→11:03)
[2019-08-11] MEDS: HYDROcodone/APAP 5/325 TABLET PO PRN ×4 (05:01→22:06)
[2019-08-11 05:45] LABS: ANION GAP 6 mmol/L (5-15); CALCIUM 8.6 mg/dL (8.5-10.1); CHLORIDE 110 mmol/L (98-107); CREATININE 0.66 mg/dL (0.55-1.02)
[2019-08-11 05:48] LABS: MEAN CORPUSCULAR HEMOGLOBIN 27.2 pg (27.0-34.8); MEAN CORPUSCULAR HGB CONC 32.1 g/dL (32.4-35.8); MEAN CORPUSCULAR VOLUME 84.6 fL (80-100); MEAN PLATELET VOLUME 7.3 fL (7.4-10.4); PLATELET COUNT 577 x10^3/uL (130-400); RED BLOOD COUNT 2.95 x10^6/uL (3.82-5.3); RED CELL DISTRIBUTION WIDTH 16.5 % (9.6-15.2)
[2019-08-11 06:06] LABS: BASOPHILS # (AUTO) 0.03 x10^3/uL (0-0.1); BASOPHILS % (AUTO) 1 % (0-1); EOSINOPHILS # (AUTO) 0.13 x10^3/uL (0-0.4); EOSINOPHILS % (AUTO) 3 % (1-7); LYMPHOCYTES # (AUTO) 1.05 x10^3/uL (1-3.4); LYMPHOCYTES % (AUTO) 26 % (22-44); MD SCAN; MONOCYTES # (AUTO) 0.39 x10^3/uL (0.2-0.8); MONOCYTES % (AUTO) 10 % (2-9); NEUTROPHILS # (AUTO) 2.36 x10^3/uL (1.8-6.8); NEUTROPHILS % (AUTO) 60 % (42-75)
[2019-08-11 07:30] VITALS: BP 113/72
[2019-08-11] MEDS: metroNIDAZOLE 500 MG TABLET PO SCH ×2 (08:12→22:05)
[2019-08-11] MEDS: CEFOTETAN PMX 2GM/50ML 50 ML IV SCH ×2 (10:57→22:05)
[2019-08-11] MEDS: DOXYCYCLINE 100 MG in DEXTROSE 5% 250 ML IV SCH ×2 (11:56→22:57)
[2019-08-11 13:29] VITALS: BP 139/70
[2019-08-11] MEDS: ONDANSETRON 2MG/ML, 2ML IVPush PRN ×2 (16:36→23:02)
[2019-08-11 19:16] VITALS: BP 119/83
[2019-08-11] MEDS: TRAZODONE 50MG TABLET PO PRN (22:16)
[2019-08-12 01:03] VITALS: BP 137/81
[2019-08-12] MEDS: HYDROcodone/APAP 5/325 TABLET PO PRN ×2 (06:17→10:47)
[2019-08-12] MEDS: KETOROLAC 30 MG/1 ML IV PRN (06:23)
[2019-08-12 06:59] LABS: MEAN CORPUSCULAR HEMOGLOBIN 27.3 pg (27.0-34.8); MEAN CORPUSCULAR HGB CONC 32.3 g/dL (32.4-35.8); MEAN CORPUSCULAR VOLUME 84.4 fL (80-100); MEAN PLATELET VOLUME 6.3 fL (7.4-10.4); PLATELET COUNT 602 x10^3/uL (130-400); RED BLOOD COUNT 3.15 x10^6/uL (3.82-5.3)
[2019-08-12 07:29] VITALS: BP_SYST 121; BP_SYST 136; BP_DIAS 70; BP_DIAS 83
[2019-08-12 07:50] LABS: MD SCAN
[2019-08-12 07:52] LABS: BASOPHILS # (AUTO) 0.02 x10^3/uL (0-0.1); BASOPHILS % (AUTO) 1 % (0-1); EOSINOPHILS # (AUTO) 0.01 x10^3/uL (0-0.4); EOSINOPHILS % (AUTO) 0 % (1-7); LYMPHOCYTES # (AUTO) 0.46 x10^3/uL (1-3.4); LYMPHOCYTES % (AUTO) 11 % (22-44); MONOCYTES % (AUTO) 12 % (2-9); NEUTROPHILS % (AUTO) 76 % (42-75)
[2019-08-12] MEDS: metroNIDAZOLE 500 MG TABLET PO SCH (08:22)
[2019-08-12] MEDS: CEFOTETAN PMX 2GM/50ML 50 ML IV SCH (08:22)
[2019-08-12] MEDS: ONDANSETRON 2MG/ML, 2ML IVPush PRN (08:23)
[2019-08-12] MEDS: DOXYCYCLINE 100 MG in DEXTROSE 5% 250 ML IV SCH (10:46)
[2019-08-12 12:44] VITALS: BP 145/80
[2019-08-12] MEDS ORDERED: METR500T PO (13:44)
[2019-08-12] MEDS ORDERED: SENN-193 PO (13:44)
[2019-08-12] MEDS ORDERED: ACET325T26 PO (13:44)
[2019-08-12] MEDS ORDERED: DOXY100T PO (13:44)
[2019-08-12] MEDS ORDERED: IBUP-1222 PO (13:44)
[2019-08-12] MEDS ORDERED: OXYC5TAB3 PO (13:44)
[2019-08-12] MEDS ORDERED: ONDA-89 PO (13:45)
== END 2019-08-12 15:34 | disposition home or self-care (01) | DRG 720 ==
LOC: ED 17:34 → MERGE 17:34 → EDIP 08-09 00:02 → 4NE 08-09 00:03
PROVIDERS: ADMIT Family Medicine; ATTEND Hospitalist
DX: A41.9 Sepsis, unspecified organism (principal); K65.9 Peritonitis, unspecified; N73.0 Acute parametritis and pelvic cellulitis; D62 Acute posthemorrhagic anemia; E11.65 Type 2 diabetes mellitus with hyperglycemia; I10 Essential (primary) hypertension; D25.9 Leiomyoma of uterus, unspecified; N92.1 Excessive and frequent menstruation with irregular cycle; E87.6 Hypokalemia; Z90.49 Acquired absence of other specified parts of digestive tract; Z90.710 Acquired absence of both cervix and uterus; K52.9 Noninfective gastroenteritis and colitis, unspecified
CPT/HCPCS: 36415; 74177; 76830; 80048; 80053; 81001; 82728; 83036; 83540; 83550; 83605; 83735; 84466; 85025; 86850; 86900; 86923; 87040; 87070; 87086; 87205; 87210; 87324; 87491; 87591; 87808; 96361; 96365; 96375; G0378; J1170; J1885; J2405; J2550; J3480; J7060; Q9967; J2270; J3490; J7030; J7040; J7120; P9016

== ENCOUNTER 2019-09-06 12:25 | Emergency (ER) | payer SELFPAY ==
[~2019-09-06] VITALS: Ht 160 cm; Wt 74.0 kg
[~2019-09-06 12:25] MED LIST changes: +ACET325T26 PO; +DOXY100T PO; +METR500T PO; +ONDA-89 PO; +OXYC5TAB3 PO; +OXYCODONE PO; +SENN-193 PO
--- NOTE | 2019-09-06 13:20 | NUR ---
AMBULATORY TO RADIOLOGY W/ STEADY GAIT
--- NOTE | 2019-09-06 13:38 | NUR ---
LABS DRAWN. BOO GONZALEZ BS FOR EXAM. PT HAD APPY & FELICITA RECENTLY. C/O RUQ PAIN W/ EATING. + NAUSEA. DENIES VOMITING. ABD SURGICAL SITES WELL HEALED. LAST ORAL INTAKE: LAST NOC. LAST BM: TODAY. C/O ELISE - TOOK TYLENOL YESTERDAY. NO PAIN MEDS TAKEN TODAY.
[2019-09-06] MEDS ORDERED: MAALOX/HYOSCYAMINE/LIDOCAINE 45 ML BTL ONE ×2 (13:48→15:10)
[2019-09-06 14:09] LABS: BASOPHILS # (AUTO) 0.02 x10^3/uL (0-0.1); BASOPHILS % (AUTO) 1 % (0-1); EOSINOPHILS # (AUTO) 0.04 x10^3/uL (0-0.4); EOSINOPHILS % (AUTO) 1 % (1-7); LYMPHOCYTES # (AUTO) 1.12 x10^3/uL (1-3.4); LYMPHOCYTES % (AUTO) 28 % (22-44); MD NO; MEAN CORPUSCULAR HEMOGLOBIN 27.4 pg (27.0-34.8); MEAN CORPUSCULAR HGB CONC 32.3 g/dL (32.4-35.8); MEAN CORPUSCULAR VOLUME 84.7 fL (80-100); MEAN PLATELET VOLUME 8.9 fL (7.4-10.4); MONOCYTES # (AUTO) 0.33 x10^3/uL (0.2-0.8); MONOCYTES % (AUTO) 8 % (2-9); NEUTROPHILS # (AUTO) 2.53 x10^3/uL (1.8-6.8); NEUTROPHILS % (AUTO) 63 % (42-75); PLATELET COUNT 343 x10^3/uL (130-400); RED BLOOD COUNT 3.83 x10^6/uL (3.82-5.3); RED CELL DISTRIBUTION WIDTH 21.1 % (9.6-15.2)
[2019-09-06 14:21] LABS: ALBUMIN 3.6 g/dL (3.4-5.0); ANION GAP 4 mmol/L (5-15); CALCIUM 8.7 mg/dL (8.5-10.1); CHLORIDE 112 mmol/L (98-107)
[2019-09-06 14:24] LABS: ALANINE AMINOTRANSFERASE 35 U/L (12-78); ALKALINE PHOSPHATASE 93 U/L (45-117); BILIRUBIN,TOTAL 0.5 mg/dL (0.2-1.0); CREATININE 0.64 mg/dL (0.55-1.02); TOTAL PROTEIN 7.7 g/dL (6.4-8.2)
[2019-09-06 14:31] LABS: MICROSCOPIC INDICATED
--- NOTE | 2019-09-06 14:57 | NUR ---
CT WAITING FOR IV ACCESS
[2019-09-06] MEDS ORDERED: MORPHINE SULFATE 4 MG/ML, 1ML IVPush PRN (15:00)
[2019-09-06] MEDS ORDERED: MORPHINE SULFATE 4 MG/ML, 1ML ONE (15:10)
--- NOTE | 2019-09-06 15:15 | NUR ---
MORPHINE GIVEN PER EMAR
[2019-09-06] MEDS ORDERED: SODIUM CHLORIDE FLUSH 10ML SYR IVF ONE (15:30)
[2019-09-06] MEDS ORDERED: OMNIPAQUE 350 MG/ML, 100ML BOTTLE ONE (15:57)
--- NOTE | 2019-09-06 16:46 | NUR ---
PT REPORT TO ANDRE HERNANDEZ RN. PT TO BE DC'D.
[2019-09-06 16:56] VITALS: BP 114/78
== END 2019-09-06 16:58 | disposition home or self-care (01) ==
LOC: ED 13:44
DX: K59.00 Constipation, unspecified (principal); R10.11 Right upper quadrant pain; R94.31 Abnormal electrocardiogram [ECG] [EKG]; I10 Essential (primary) hypertension; Z90.89 Acquired absence of other organs; Z90.49 Acquired absence of other specified parts of digestive tract
CPT/HCPCS: 36415; 74022; 74177; 80053; 81001; 83690; 85025; 87086; 93005; 96374; 99285; J2270; Q9967